=== PATIENT | male | born 1965 | race Caucasian/White ===

== ENCOUNTER 2022-05-08 14:28 | Outpatient (CLI) | payer BC, SELFPAY ==
[2022-05-08 18:09] LABS: PSA Screen* 3.52 ng/mL (0.10-4.00)
== END 2022-05-08 14:29 | disposition home or self-care (01) ==
PROVIDERS: PCP Family Medicine; Visit Provider Family Medicine
DX: R30.0 Dysuria (principal); N40.0 Benign prostatic hyperplasia without lower urinary tract symptoms; Z12.5 Encounter for screening for malignant neoplasm of prostate
CPT/HCPCS: 84153; 87086

== ENCOUNTER 2023-08-04 13:51 | Outpatient (CLI) | payer BC, SELFPAY | END 2023-08-04 13:52 | disposition home or self-care (01) | PROVIDERS: PCP Family Medicine; Visit Provider Family Medicine | DX: Z13.6 Encounter for screening for cardiovascular disorders (principal); Z12.5 Encounter for screening for malignant neoplasm of prostate | CPT/HCPCS: 80061; 84153 ==

== ENCOUNTER 2024-12-19 11:21 | Outpatient (CLI) | payer BC, SELFPAY | END 2024-12-19 11:22 | disposition home or self-care (01) | PROVIDERS: PCP Family Medicine; Visit Provider Family Medicine | DX: Z13.1 Encounter for screening for diabetes mellitus (principal); Z12.5 Encounter for screening for malignant neoplasm of prostate | CPT/HCPCS: 80048; G0103 ==

== ENCOUNTER 2024-12-29 10:39 | Outpatient (CLI) | payer BC, SELFPAY | END 2024-12-29 10:40 | disposition home or self-care (01) | LOC: CT 10:40 | PROVIDERS: PCP Family Medicine; Visit Provider Family Medicine | DX: Z12.2 Encounter for screening for malignant neoplasm of respiratory organs (principal); R91.8 Other nonspecific abnormal finding of lung field; Z87.891 Personal history of nicotine dependence | CPT/HCPCS: 71271 ==

== ENCOUNTER 2025-07-06 13:44 | Outpatient (CLI) | payer BC, SELFPAY ==
--- NOTE | 2025-07-06 14:00 | CRLHL7_ITS ---
For Patients: As a result of the Century Cures Act, medical imaging exams and procedure reports are released immediately into your electronic medical record. You may view this report before your referring provider. If you have questions, please contact your health care provider. INDICATION: Lung cancer screening. History of smoking. High risk patient. TECHNIQUE: Low-dose lung cancer screening non-contrast CT chest. Dose reduction techniques were used. COMPARISON: 12/29/2024 FINDINGS: NODULES: Unchanged bandlike density at the left lung apex, likely reflecting scarring. Unchanged calcified granuloma at the left anterior lung base. Few additional unchanged small, sub 6 millimeter pulmonary nodules, including a 5 millimeter subpleural nodule in the anterior right upper lobe (series 2, image 34) LUNGS AND PLEURA: Emphysema large airways thickening. Few small bands of scarring and/or atelectasis. MEDIASTINUM: Normal. CORONARY ARTERY CALCIFICATION: Trace. LIMITED UPPER ABDOMEN: Normal. MUSCULOSKELETAL: Unremarkable for age IMPRESSION: 1. Lung-RADS category 2, benign. 2. Management: Recommend continued screening, if eligible, with low-dose CT in 12 months. Please note that all CT scans at this facility use dose modulation, iterative reconstruction, and/or weight-based dosing when appropriate to reduce radiation dose to as low as reasonably achievable. Dictated by Alvin Wren MD @ 07/09/2025 8:09:08 AM (Electronically Signed)
== END 2025-07-06 13:45 | disposition home or self-care (01) ==
LOC: CT 13:44
PROVIDERS: PCP Family Medicine; Visit Provider Family Medicine
DX: Z12.2 Encounter for screening for malignant neoplasm of respiratory organs (principal); Z72.0 Tobacco use
CPT/HCPCS: 71250